=== PATIENT | female | born 1945 | race Caucasian/White ===

== ENCOUNTER 2020-11-11 10:47 | Outpatient (REF) | payer MEDICARE, SELFPAY ==
--- NOTE | ~2020-11-11 | MM_ITS ---
EXAMINATION: BONE DENSITOMETRY CLINICAL INDICATION: Menopause. COMPARISON: Previous BD dated 06/02/2011 and baseline BD dated 05/26/2009. TECHNIQUE: Using a [employer] DXA System (software version: 13.1) manufactured by [employer], dual-energy x-ray absorptiometry was performed of the lumbar spine and left hip. The images are of good technical quality. Summary results are attached. FINDINGS: AP SPINE L1-L2 (excluding L3 and L4): The data of L1-L4 has been changed to exclude the L3 and L4 vertebral bodies, because scoliosis with degenerative sclerosis at these levels may cause overestimation of lumbar spine density. Current: BMD 1.146 g/cm2, Z-score 1.7, T-score -0.2, normal, 2.7% increase from previous, 8.9% increase from baseline (<5% change is not significant). Prior: BMD 1.116 g/cm2. Baseline: BMD 1.052 g/cm2. LEFT FEMUR, NECK: Current: BMD 0.770 g/cm2, Z-score 0.1, T-score -1.9, osteopenia. Prior: BMD 0.871 g/cm2. Baseline: BMD 0.868 g/cm2. LEFT FEMUR, TOTAL: Current: BMD 0.888 g/cm2, Z-score 0.9, T-score -1.0, normal, 0.0% no change from previous, 2.5% decrease from baseline (<5% change is not significant). Prior: BMD 0.888 g/cm2. Baseline: BMD 0.911 g/cm2. IDENTIFIED RISK FACTORS: Height loss. Early menopause, secondary osteoporosis, hysterectomy. HISTORY OF FRACTURE: None listed. MEDICATIONS: Vitamin D. MM/XR DEXA axial skeleton IMPRESSION: 1. DIAGNOSIS: Osteopenia based on the lowest T-score value of -1.9 in the femoral neck applying World Health Organization criteria. 2. 10-YEAR FRACTURE RISK PREDICTION, FRAX: Major osteoporotic fracture (clinical spine, forearm, hip or shoulder) 13.1%. Hip fracture 3.3%. 3. Treatment Recommendations: NOF guidelines recommend consideration for treatment in postmenopausal women and men age 50 and older presenting with the following: -A hip or vertebral (clinical or morphometric) fracture. -T-score less than or equal to -2.5 at the femoral neck or spine after appropriate evaluation to exclude secondary causes. -Low bone mass at the hip or spine and a 10-year fracture probability by FRAX of greater than or equal to 3% for hip fracture or greater than or equal to 20% for major osteoporotic fracture based on the [place] adapted WHO algorithm. 4. Other Recommendations: All treatment decisions require clinical judgment and consideration of individual patient factors, including patient preferences, comorbidities, previous drug use, risk factors not captured in the FRAX model (e.g. frailty, falls, vitamin D deficiency, increased bone turnover, interval significant decline in bone density) and possible under or overestimation of fracture risk by FRAX. Additional medical evaluation for secondary cause of low bone mineral density may be appropriate. FUTURE SCAN RECOMMENDATION: People with diagnosed cases of osteoporosis or at high risk for fracture should have regular bone mineral density tests. For patients eligible for Medicare, routine testing is allowed once every 2 years. The testing frequency can be increased to one year for patients who have rapidly progressing disease, those who are receiving or discontinuing medical therapy to restore bone mass, or have additional risk factors.
--- NOTE | ~2020-11-11 | MM_ITS ---
EXAMINATION: MM SCREENING DIGITAL BREAST TOMOSYNTHESIS, BILATERAL CLINICAL INFORMATION: Screening. Asymptomatic. The lifetime risk of breast cancer based on the Tyrer-Cuzick Model is 2%. COMPARISON: Mammography: 03/20/2018, 04/15/2016, 10/06/2014 TECHNIQUE: Digital breast tomosynthesis is performed in both the craniocaudal and mediolateral oblique views along with computer-aided detection (CAD). Synthesized 2D images are generated from the tomosynthesis. FINDINGS: There are scattered areas of fibroglandular density (ACR BI-RADS breast composition Category b). There are no significant masses, abnormal calcifications, or other abnormalities. Breast tissue composition borders on heterogeneously dense. Parenchymal pattern is similar to prior studies. There are intramammary nodes again seen in both posterior upper outer quadrants. The skin contours are smooth. MM/MM tomosynthesis screening BI IMPRESSION: No mammographic evidence of malignancy. ASSESSMENT: BI-RADS 2: Benign RECOMMENDATION: Routine annual mammography screening. This patient's information was entered into a reminder system with a target due date for their next mammogram.
== END 2020-11-11 10:48 | disposition home or self-care (01) ==
LOC: HO.MAMMO 10:47
PROVIDERS: PCP Internal Medicine; Visit Provider Internal Medicine
DX: Z13.820 Encounter for screening for osteoporosis (principal); Z78.0 Asymptomatic menopausal state; Z90.710 Acquired absence of both cervix and uterus; Z12.31 Encounter for screening mammogram for malignant neoplasm of breast
CPT/HCPCS: 77063; 77067; 77080

== ENCOUNTER 2021-11-12 15:38 | Outpatient (REF) | payer MEDICARE, SELFPAY ==
--- NOTE | ~2021-11-12 | MM_ITS ---
EXAMINATION: MM SCREENING DIGITAL BREAST TOMOSYNTHESIS, BILATERAL CLINICAL INFORMATION: Screening. Asymptomatic. The lifetime risk of breast cancer based on the Tyrer-Cuzick Model is 2%. COMPARISON: Mammography: 11/11/2020, 03/20/2018, 04/15/2016 TECHNIQUE: Digital breast tomosynthesis is performed in both the craniocaudal and mediolateral oblique views along with computer-aided detection (CAD). Synthesized 2D images are generated from the tomosynthesis. FINDINGS: There are scattered areas of fibroglandular density (ACR BI-RADS breast composition Category b). There are no significant masses, abnormal calcifications, or other abnormalities. Parenchymal pattern is similar to prior studies. There is no developing density or architectural abnormality. The axilla and skin contours are unremarkable. No significant changes. MM/MM tomosynthesis screening BI IMPRESSION: No mammographic evidence of malignancy. ASSESSMENT: BI-RADS 1: Negative RECOMMENDATION: Routine annual mammography screening. This patient's information was entered into a reminder system with a target due date for their next mammogram.
== END 2021-11-12 15:39 | disposition home or self-care (01) ==
LOC: HO.MAMMO 15:38
PROVIDERS: Visit Provider Internal Medicine
DX: Z12.31 Encounter for screening mammogram for malignant neoplasm of breast (principal)
CPT/HCPCS: 77063; 77067

== ENCOUNTER 2024-07-17 13:26 | Outpatient (REF) | payer MEDICARE, SELFPAY ==
--- NOTE | ~2024-07-17 | MM_ITS ---
EXAMINATION: DXA BONE DENSITY AXIAL HISTORY: Z78.0 MENOPAUSAL STATE TECHNIQUE: Cytomedix Dual energy absorptiometry (DEXA) of the lumbar spine, total left hip, and femoral neck was performed. COMPARISON: Comparison is made with the prior examination dated 11/11/2020. FINDINGS: The bone mineral density of the lumbar spine is 1.226 with a T-score of 0.5, and a Z-score of 2.4. This is indicative of normal bone mineral density. This represents a BMD change of -2.0% compared to the prior exam. This is not statistically significant. The bone mineral density of the left total hip is 0.872 with a T-score of -1.1, and a Z-score of 0.9. This is indicative of osteopenia. This represents a BMD change of -1.8% compared to the prior exam. This is not statistically significant. The bone mineral density of the left femoral neck is 0.807 with a T-score of -1.7, and a Z-score of 0.5. This is indicative of osteopenia. This represents a BMD change of 4.8% compared to the prior exam. FRACTURE RISK: The FRAX index suggests a ten year probability of major osteoporotic fracture of 13.9%, and of hip fracture 3.5%. MM/XR DEXA axial skeleton IMPRESSION: Based on bone mineral density, and according to World Health Organization (WHO) criteria, the diagnosis is consistent with osteopenia. All bone density values are in grams per centimeter squared (g/cm2). Statistically, 68% of repeat scans fall within 1 SD (+/- 0.010 g/cm2 for AP spine L1-L4) and 1 SD (+/- 0.012 g/cm2 for femur total) FRAX is a trademark of the [employer] [place] [facility] Met[employer], a World Health Organization (WHO) Collaborating Center. Electronically signed by: Clinton Figueroa MD 07/17/2024 02:19 PM EDT
--- OUTSIDE RECORDS SUMMARY | 2024-07-17 14:00 | XMS_ITS ---
Author Organization [facility] Address [address] [place] [address] Care Team Providers Care Human Resources Office Manager Name Role Phone Skip SANTOS, Jorge L Primary Care Provider Ricarda Clifford Unavailable [phone] Encounters Encounter Location Date Provider Diagnosis [facility] [address] [place] [address] 01/30/2024 Ricarda Feliciano Plan Of Treatment No Information Progress Notes * Josefina LOPEZOB: 6 (79 yo F)Acc No.[id number]:01/30/2024 Progress Notes Patient:?Mariangel LOPEZ Provider:?Ricarda Feliciano DPM :1945???Age:78 Y???Sex:Female D ate:01/30/2024 Address:[address] [place], [place] [id number] Pcp:Jorge L Valdivia MD Subjective: * Chief Complaints: * ??? * Medical History:? Objective: * Vitals:? Assessment: Plan: * Treatment: * Images: * The named appointment provid er may or may not be the originator of this progress note, and it is not deemed complete until electronically signed by the appointment provider. Sign off status: Pending * Provider:?Ricarda Feliciano DPM Date:?04/2023 Generated for Soto farley/Faalyssa/eTransmitting on:?07/17/2024 02:00 PM EDT
--- OUTSIDE RECORDS SUMMARY | 2024-07-17 14:00 | XMS_ITS ---
Author Organization [facility] Address [address] [place] [address] Care Team Providers Care Technical Specialist Cytology Name Role Phone Jorge L Valdivia MD Primary Care Provider Ricarda Clifford [phone] REASON FOR VISIT cx 01/29 Encounters Encounter Location Date Provider Diagnosis [facility] [address] [place] [address] 01/23/2024 Ricarda Feliciano Plan Of Treatment No Information Progress Notes * JOHN SimiYannickOB: 6 (78 yo F)Acc No.[id number]:01/23/2024 Patient:?Mariangel LOPEZ :1945???Age:78 Y???Sex:Female [address] [facility] [place] [address] * true * Date:? Generated for Soto farley/Mukesh/eTransmitting on:?07/17/2024 02:00 PM EDT
--- OUTSIDE RECORDS SUMMARY | 2024-07-17 14:01 | XMS_ITS ---
[facility] [place] Address [address] [facility] [place] [address] Care Team Providers Care Chargeback Analyst Name Role Phone Jorge L Valdivia MD Primary Care Provider Ricarda Clifford Unavailable [phone] Allergies Allergen (clinical drug ingredient) Drug/Non Drug Allergy documented on EMR Reaction Allergy Type Onset Date Status Codeine Phosphate Unknown Drug Allergy Active Latex Latex redness of skin Allergy Acti ve REASON FOR VISIT Pcp-07/20, Wart(s), Painful Toe(s) Medications Medication SIG (Take, Route, Frequency, Duration) Notes Start Date End Date Status ALPRAZolam 0.25 MG 1 tablet Orally Twic e a day Active Rosuvastatin Calcium 5 MG 1 tablet Orall y Once a day Active Fluticasone Propionate HFA Active Social History Tobacco Use: Social History Observation Description Date Details (start date - stop date) Never Smoker NA - NA Tobacco Use/Smoking Question Answer Notes Are you a: nonsmoker Additional Findings: Tobacco Non-User Current no n-smoker Alcohol Screen Question Answer Notes Did you have a drink containing alcohol in the p ast year? Yes Points 0 Interpretation Negative Tobacco use other than smoking: Question Answer Notes Are you an other tobacco user? No Problems Problem Type SNOMED Code ICD Code Onset Dates Problem Status W/U Status Risk Notes Problem Plantar wart (02611972) Plantar wart (B07.0) Active confirmed Problem Acquired hammer toe of right foot (5504125324856 105) Other hammer toe(s) (acquired), right foot (M20.41) Active confirmed Problem Acquired hammer toe of left foot (1815275647330 103) Other hammer toe(s) (acquired), left foot (M20.42) Active confirmed Vital Signs Height 5 ft 2 in in 11/21/2023 Weight 140 lbs 11/21/2023 BMI 25.6 kg/m2 11/21/2023 Encounters Encounter Location Date Provider Diagnosis [facility] [address] [place] [address] 11/21/2023 Ricarda Feliciano Pain in right toe(s) M79.674 ; Plantar wart B07.0 ; Other hammer toe(s) (acquired), right foot M20.41 and Other hammer toe(s) (acquired), left foot M20.42 Assessments Encounter Date Diagnosis (ICD Code) Assessment Notes Treatment Notes Treatment Clinical Notes Section Notes 11/21/2023 Pain in right toe(s) (ICD-10 - M79.674) 11/21/2023 Plantar wart (ICD-10 - B07.0) 11/21/2023 Other hammer toe(s) (acquired), right foot (ICD-10 - M20.41) 11/21/2023 Other hammer toe(s) (acquired), left foot (ICD-10 - M20.42) Plan Of Treatment Next Appt Details Follow Up: 6 Weeks, Reason: Progress Notes * BORISSimi JOHNSONYannickOB: 6 (78 yo F)Acc No.[id number]:11/21/2023 Progress Notes Patient:?Mariangel Lopez Provider:?Ricarda Feliciano DPM :1945???Age:78 Y???Sex:Female D ate:11/21/2023 Address:[address] [place], [place] [id number] Pcp:Jorge L Valdivia MD Subjective: * Chief Complaints: * ???Pcp-07/20Wart(s)Painful T oe(s) * HPI: ???Skin problems:?Pt States PCP Visit: ?DATE?07/19/2023 ?Location:?Right 1st Toe(s).?Duration:?several years.?Toe pain:?Nature:?tenderness stiffness cramping.?Location:?2-5 B/L feet.?Aggravated by:?shoes, any pressure.?Treatments:?rest/alter normal daily activity, change in shoes.? * ROS:?General/Constitutional:?Nausea?denies.?Vomiting?denies.?Hunger Thirst?denies.?Loss appetite?denies.?Chills?denies.?Fatigue?denies.?Fever?denies.?Night Sweats?denies.?Unexplained weight loss?denies.?Unexplained weight gain?denies.?HEENTM:?Dentures?denies.?Dizziness?denies.?Glasses/contacts?admits.?Retinopathy?de nies.?Blurred/double vision?denies.?TMJ?denies.?Discharge/drainage?denies.?Implants?denies.?Sore throat?denies.?Dental implants?denies.?Hard of hearing ?denies.?Difficulty chewing/swallowing/speaking?denies.?Nose bleeds?denies.?Sore mouth?denies.?Respiratory:?On Oxygen?denies.?Pneumonia/pleurisy?denies.?Bronchitis?denies.?Emphysema?denies.?C oughing?denies.?Cough blood?denies.?Shortness of breath?admits.?Wheezing?denies.?Cardiovascular:?Pacemaker?denies.?MVP?denies.?WPW?denies.?CHF?denies.?Heart attack?denies.?Septal defect?denies.?Rapid beat?denies.?Chest pain ?denies.?Atrial Fib.?denies.?Murmur/Palpitations?denies.?Gastrointestinal:?Hemorrhoids?denies.?Stomach/Abdominal pain?denies.?Dark blood stool?denies.?Irritable bowel ?denies.?Constipation?denies.?Diarrhea?denies.?Hematology:?Swelling?denies.?Clots?denies.?Varicose Veins?denies.?Bruising?denies.?Bleeding problem?denies.?Genitourinary:?Blood urine?denies.?Frequent/Painfu/urination/bladder control?denies.?Kidney stones?denies.?Infection (UTI)?denies.?Nephropathy?denies.?sex trans dis (STD)?denies.?Prostate?denies.?Musculoskeletal:?Hammertoes?denies.?Bunions?denies.?Back Pain?admits.?Muscle Cramps/ Resting?denies.?Muscle cramps / walking?denies.?Generalized aches and pains?admits.?Weakness?denies.?Integ.:?Hansen?denies.?Scars?denies.?Corns/calluses?denies.?Ingrown nails?denies.?Painful nails?denies.?Open Sores?denies.?Rashes?denies.?Neurologic:?Difficulty sleeping?denies.?Brain disorder?denies.?Numbness?denies.?Balance trouble?denies.?Confusion?denies.?Fainting/blackouts?denies.?Tingling?denies.?Tr emors?denies.? * Medical History:? * Surgical History:?partial hy sterectomy * Hospitalization/Major Diagno stic Procedure:?Denies Past Hospitalization * Family History:?Mother: dece ased.?Father: , foot problems, diagnosed with Diabetic - NIDDM, Other malignant neoplasm of unspecified site.? * Social History:?Tobacco Use:?Tobacco Use/Smoking?Are you a:?nonsmoker ?Additional Findings: Tobacco Non-User?Current non-smoker ?Tobacco use other than smoking?Are you an other tobacco user??No ???Drugs/Alcohol:?Drugs?Have you used drugs other than those for medical reasons in the past 12 months??No ?Alcohol Screen?Did you have a drink containing alcohol in the past year??Yes ?Points?0 ?Interpretation?Negative ???Miscellaneous:?Caffeine: yes, frequency: 3 cups per day. ?Children: yes. ?no Exercise. ?Marital status: . ?Occupation: Retired. * Medications:?TakingFluticaso ne Propionate HFA ALPRAZolam 0.25 MG Tablet 1 tablet Orally Twice a dayRosuvastatin Calcium 5 MG Tablet 1 tablet Orally Once a dayMedication List reviewed and reconciled with the patientTaking Fluticasone Propionate HFA Taking ALPRAZolam 0.25 MG Tablet 1 tablet Orally Twice a dayTaking Rosuvastatin Calcium 5 MG Tablet 1 tablet Orally Once a dayMedication List reviewed and reconciled with the patient * Allergies:?Codeine Phosphate Latex: redness of skinyes[Allergies Verified] Objective: * Vitals:?Ht:5 ft 2 in, Wt:140 , BMI: 25.6, Shoe size:7.5, Ht-cm: 157.48 cm, Wt-k.5 kg. * Examination: ???General Examination: ?GENERAL APPEARANCE:?Reveals a pleasant, alert, well-nourished, well- developed, well hydrated individual, who demonstrates proper attention to hygiene/body habitus, and is in no acute distress, Pt serves as own?historian for office visit today.?ORIENTED:?person, place, and time.?Neurological: ?SENSORY:?Neurological exam reveals intact sensorium, pain sensation normal, vibration sensation intact, pinprick sensation is normal in the lower extremities, Pt denies, anesthesia, burning, paresthesia, tingling, B/L.?DEEP TENDON REFLEXES:?Achilles, 2/4, B/L.?Vascular: ?DP PULSES(B):?3/4, B/L.?PT PULSES(B):?3/4, B/L.?CAPILLARY FILL TIME:?immediate, all digits, B/L.?TROPHIC CONDITION-TEXTURE/ELASTICITY/TURGOR/HAIR GROWTH(B):?normal, B/L.?TEMPERTURE GRADIENT(C):?warm to cool, proximal to distal, B/L.?PIGMENTATION:?normal, B/L.?EDEMA(C):?absent, B/L.?Dermatologic: ?VERRUCA:? Reveals a Single , multi-loculated , mosaic-patterned, round, raised, flat-topped, petechial bleeding papule(s), with cauliflower appearance and interruption of skin lines, pain to lateral compression, and size estimated at 10mm diameter 1st toe RIGHT.?Orthopedic: ?MUSCLE STRENGTH:?5/5 all groups in a symmetrical fashion , B/L.?DIGITAL DEFORMITIES:? Digital contracture, PIPJ, 2-5 B/L, reducible with WB, or to push-up test, no over, nor underlapping.?FOOTWEAR:? shoe gear properties exacerbate patients foot/toe deformity.? Assessment: * Assessment: 1.?Pain in right toe(s) - M7 9.674?2.?Plantar wart - B07.0 (Primary)?3.?Other hammer toe(s) (acquired), right foot - M20.41?4.?Other hammer toe(s) (acquired), left foot - M20.42? Plan: * Treatment: * Procedure Codes:? * Preventive Medicine:? ??Counseling:?Discussion:?-03: Office or other outpatient visit for the evaluation and management of a new patient, which required a medically appropriate history and/or examination and LOW level of DECISION MAKING for: 1 STABLE ACUTE UNCOMPLICATED PROBLEM, 2 OR MORE MINOR PROBLEMS, OR 1 STABLE CHRONIC PROBLEM, THAT POSE(S) A LOW RISK FOR MORBIDITY/MORTALITY. The visit on the day of the encounter encompassed interpreting the data and educating the patient as to the nature of their condition, treatment options available according to their individual PMH, meds, allergies, and overall health/living conditions, as well as any potential risks or complications that may occur from a failure to adhere to, and participate in, the recommended course of therapy. The discussion included a complete verbal, and/or written explanation of the examination results, any x-rays taken, the proposed diagnosis, and outline of the treatment plan. A schedule for future care needs was also explained. The patient verbalized an understanding of the instructions at this time and agreed to be an active participant in their treatment. If the patient should think of any questions or concerns after the visit, I have encouraged the patient to call the office.?Digital Treatment:?I explained to the patient the possible etiologies of Hammertoes, including genetics/foot type/shoegear/activity level/exercise routine and the risks/benefits of all the different treatment options for pain including: No treatment at all, Rest, Ice, New/supportive/wider/deeper Shoegear, Digital Padding/Strapping/Taping/Bracing/Gel protective sleeves, Foot/Ankle AFO Bracing, Stretching exercises, Deep Tissue Massage, Arch support/shoe inserts with splay metatarsal padding, and Custom orthoses. I insisted that any digital devices be removed daily and not worn overnight for safety. The patient is to carefully examine the toes daily for any skin irritation while using any splinting or padding device. The advantages and disadvantages of each option were discussed and the patients questions re: shoegear, padding, custom vs prefabricated inserts, activity level, and consistency in home treatment regimens for optimal success were answered to their verbally confirmed satisfaction.?Shoe Gear Counseling:?The patient and I reviewed the types of shoes they should be wearing. My recommendation included obtaining a well-fitted shoe with a good supportive, non-foldable nor twistable sole, plenty of toe/room for the forefoot, and proper arch support. Based on todays examination, I recommended the patient look for new shoes, by having their feet professionally measured. We discussed that generally the best time of the day for a shoe fitting is the afternoon. Different shoes types and brands to best match the patients occupation and vocation were discussed. Specific brand selection will be up to the patient, their individual foot condition/deformities, and fit. The patient and I reviewed the standard new shoe break in period by wearing them for a few hours a day while checking for redness or sores as wear time is increased. The patient verbally confirmed to understanding the information discussed .?Verruca:?The patient was counseled on the diagnosis, numerous treatment options re: Verruca Plantaris and the fact that the lesions are caused by a virus and the difficulty in treating and the time that may be required. Recom Zinc to supplement the immune system, Recom Vircin under occlusion as directed.? * Follow Up:?6 Weeks * Images: * Sign off status: Completed true * Provider:?Ricarda Feliciano DPM Date:? Generated for Soto farley/Mukesh/Damari on:?07/17/2024 02:01 PM EDT History and Physical Notes * HPI (History of Present Illness) Category Sub-Category Detail Notes Category Not es Toe pain Nature: tenderness stiffness crampin g Location: 2-5 B/L feet Aggravated by: shoes, any pressure Treatments: rest/alter normal da regla activity, change in shoes Skin problems Location: Right 1st Toe(s) Duration: several years Pt States PCP Visit: DATE: 07/19/2023 Examination Category Sub-Category Detail Notes Category Not es Neurological SENSORY: Neurological exa m reveals intact sensorium, pain sensation normal, vibration sensation intact, pinprick sensation is normal in the lower extremities, Pt denies, anesthesia, burning, paresthesia, tingling, B/L DEEP TENDON REFLEXES: Achilles, 2/4, B/L Dermatologic VERRUCA: Reveals a Single , multi-loculated , mosaic-patterned, round, raised, flat-topped, petechial bleeding papule(s), with cauliflower appearance and interruption of skin lines, pain to lateral compression, and size estimated at 10mm diameter 1st toe RIGHT Orthopedic FOOTWEAR EVALUATION: shoe gear p roperties exacerbate patients foot/toe deformity DIGITAL DEFORMITIES: Digital contracture , PIPJ, 2-5 B/L, reducible with WB, or to push-up test, no over, nor underlapping MUSCLE STRENGTH: 5/5 all groups in a symmetrical fashion , B/L General Examination GENERAL APPEARANCE: Reveals a pleasant, alert, well- nourished, well-developed, well hydrated individual, who demonstrates proper attention to hygiene/body habitus, and is in no acute distress, Pt serves as own historian for office visit today ORIENTED: person, place, and t octavia Vascular DP PULSES (B): 3/4, B/L PT PULSES (B): 3/4, B/L CAPILLARY FILL TIME: immediate, all digi ts, B/L TEMPERTURE GRADIENT (C): warm to cool, p roximal to distal, B/L TROPHIC CONDITION-TEXTURE/ELASTICITY/TURGOR/HAIR GROWTH (B): normal, B/L EDEMA (C): absent, B/L PIGMENTATION: normal, B/L
--- OUTSIDE RECORDS SUMMARY | 2024-07-17 14:01 | XMS_ITS | Patient Health Record ---
Author Organization [facility] Madelin chang [place] Address [address] [place] [address] Care Team Providers Care Cycle Specialist Name Role Phone Jorge L Valdivia MD Primary Care Provider Ricarda Clifford Unavailable [phone] Allergies Allergen (clinical drug ingredient) Drug/Non Drug Allergy documented on EMR Reaction Allergy Type Onset Date Status Codeine Phosphate Unknown Drug Allergy Active Latex Latex redness of skin Allergy Acti ve Reason For Referral Diagnosis 1 Pain in unspecified foot (M79.673) Referring Provider First Name Jorge L Referring Provider Last Name Skip Referred [facility] Referred Provider Ernesto Roque Referred Address [address] [place], [place],[address],[place] Referred Provider Specialty Podiatry Referral Priority Routine Diagnosis 1 Pain in unspecified foot (M79.673) Referring Provider First Name Jorge L Referring Provider Last Name [facility] Referred Provider Ricarda Feliciano Referred Address [address], [place],[address],[place] Referred Provider Specialty Podiatry Referral Priority Routine Medications Medication SIG (Take, Route, Frequency, Duration) [...] Problem Status W/U Status Risk Notes Problem Acquired hammer toe of right foot (9823331307293 105) Other hammer toe(s) (acquired), right foot (M20.41) Active confirmed Problem Acquired hammer toe of left foot (4487577168878 103) Other hammer toe(s) (acquired), left foot (M20.42) Active confirmed Problem Plantar wart (96830792) Plantar wart (B07.0) Active confirmed Vital Signs Height 5 ft 2 in in 11/21/2023 Weight 140 lbs 11/21/2023 BMI 25.6 kg/m2 11/21/2023 Encounters Encounter Location Date Provider Diagnosis [facility] [address] [address] 11/21/2023 Ricarda Feliciano Pain in right toe(s) M79.674 ; Plantar wart B07.0 ; Other hammer toe(s) (acquired), right foot M20.41 and Other hammer toe(s) (acquired), left foot M20.42 [facility] [address] [address] 01/23/2024 Ricarda Feliciano Assessments Encounter Date Diagnosis (ICD Code) Assessment Notes Treatment Notes Treatment Clinical Notes Section Notes 11/21/2023 Pain in right toe(s) (ICD-10 - M79.674) 11/21/2023 Plantar wart (ICD-10 - B07.0) 11/21/2023 Other hammer toe(s) (acquired), right foot (ICD-10 - M20.41) 11/21/2023 Other hammer toe(s) (acquired), left foot (ICD-10 - M20.42) Plan Of Treatment No Information Insurance Providers Payer Name Payer Address Payer Phone Subscriber Number Group Number Insured Name Patient Relationship to Insured Coverage Start Date Coverage End Date [employer] Preferred [address] [place] [address] [id number] Mariangel Lopez Self - patient is the insured Medical (General) History Medical History History ICD Code Anxiety Back,Hip,and Knee pain Cataracts covid-19 Macular degeneration Osteoporosis Warts Chicken pox Surgical History Surgery Date(Month/Year) partial hysterectomy
--- OUTSIDE RECORDS SUMMARY | 2024-07-17 14:01 | XMS_ITS ---
Author Name [facility] Organization Unknown Encounters Encounter Type Encounter Reason Primary Diagnosis Location Date Ambulatory MODIFY [place], right eye [facility] 11/30/2023
== END 2024-07-17 13:27 | disposition home or self-care (01) ==
LOC: HO.MAMMO 13:26
PROVIDERS: PCP Internal Medicine; Visit Provider Internal Medicine
DX: Z12.31 Encounter for screening mammogram for malignant neoplasm of breast (principal); Z13.820 Encounter for screening for osteoporosis; Z78.0 Asymptomatic menopausal state
CPT/HCPCS: 77063; 77067; 77080

== ENCOUNTER → 2024-07-17 14:00 | Outpatient (BNV) | payer MEDICARE, SELFPAY | PROVIDERS: PCP Internal Medicine; Visit Provider Radiology Diagnostic Radiology | DX: E28.39 Other primary ovarian failure (principal) | CPT/HCPCS: 77080 ==